=== PATIENT | female | born 1960 | race Caucasian/White ===

== ENCOUNTER 2016-11-22 09:53 | Outpatient (CLI) | payer OTHER ==
--- NOTE | 2016-11-22 10:42 | DIAGNOSTIC IMAGING REPORT ---
PROCEDURE: US COMPLETE PELVIC W/TRANSVAG INDICATION: PELVIC PAIN TECHNIQUE: Transabdominal and endovaginal falk scale and color Doppler sonographic images of the female pelvis were obtained. COMPARISON: None. FINDINGS: TRANSABDOMINAL SCANS: Status post hysterectomy. No suspicious adnexal masses visible. No free fluid. Incidental note made of mild hepatic steatosis. TRANSVAGINAL SCANS: Status post hysterectomy. Normal appearing vaginal cuff. No associated mass. Left ovary measures 3.6 x 3.0 x 1.5 cm and contains a multiple small peripheral calcifications. There is detectable vascularity in the left ovary. The right ovary measures 2.7 x 1.5 x 1.3 cm and also contains a few coarse peripheral calcifications. Normal blood flow in the right ovary is also present. No suspicious adnexal masses. IMPRESSION: 1. Normal pelvic ultrasound status post hysterectomy.
== END 2016-11-22 23:00 ==
LOC: US SRH 09:53
DX: R10.2 Pelvic and perineal pain (principal); Z90.710 Acquired absence of both cervix and uterus